=== PATIENT | female | born 1990 | race Caucasian/White ===

== ENCOUNTER 2021-11-04 23:48 | Emergency (ER) | payer BC ==
[2021-11-05] MEDS ORDERED: Ketorolac 15 MG/ML SDV IM ONE (01:09)
== END 2021-11-05 01:35 | disposition home or self-care (01) ==
LOC: JD.ED 23:48
DX: S93.401A Sprain of unspecified ligament of right ankle, initial encounter (principal); Z86.16 Personal history of COVID-19; Z72.0 Tobacco use; X50.1XXA Overexertion from prolonged static or awkward postures, initial encounter
CPT/HCPCS: 73630; 96372; 99283; J1885